=== PATIENT | male | born 1980 | race Caucasian/White ===

== ENCOUNTER 2021-03-31 12:29 | Outpatient (REF) | payer BC, SELFPAY ==
[2021-03-31 13:53] LABS: MANUAL DIFF FLAG NO
[2021-03-31 13:54] LABS: Basophils Percent Auto 0.2 % (0-2); Eosinophils Absolute Auto 0.1 X10*3/uL (0.0-0.4); Eosinophils Percent Auto 1.7 % (0-4); Hematocrit 44.6 % (42-52); Hemoglobin 15.2 g/dl (14.0-18.0); Imm Gran Abs Auto 0.01 X10*3/uL (0.00-0.03); Imm Gran Pct Auto 0.2 % (0.0-0.4); Lymphocytes Absolute Auto 1.8 X10*3/uL (1.2-4.9); Mean Corpuscular HGB Conc 34.1 g/dl (31.0-36.0); Mean Corpuscular Hemoglobin 30.2 pg (27.0-33.0); Mean Corpuscular Volume 88.5 fL (80-98); Mean Platelet Volume 10.8 fL (9.4-12.4); Monocytes Absolute Auto 0.4 X10*3/uL (0.1-1.2); Monocytes Percent Auto 7.3 % (2-11); Neutrophils Absolute Auto 2.5 X10*3/uL (2.0-8.3); Neutrophils Percent Auto 52.6 % (45-73); Platelet Count 202 X10*3/uL (160-400); Red Blood Count 5.04 X10*6/uL (4.60-5.80); White Blood Count 4.8 X10*3/uL (4.8-10.8)
[2021-03-31 16:20] LABS: Alanine Aminotransferase 46 U/L (0-40); Albumin Level 4.7 g/dL (3.5-5.0); Alkaline Phosphatase 118 U/L (39-117); Anion Gap 13 (12-20); Aspartate Amino Transferase 27 U/L (5-37); Bilirubin Total 0.8 mg/dL (0.0-1.0); Blood Urea Nitrogen 14 mg/dL (9-16); Calcium 9.5 mg/dL (8.4-10.2); Carbon Dioxide 27 mmol/L (22-29); Chloride 104 mmol/L (96-108); Cholesterol 242 mg/dL; Estimated Glomerular Filt Rate > 60; Glucose Fasting 100 mg/dL (60-99); HDL Cholesterol 35 mg/dL; LDL Cholesterol Calculated 180 mg/dl; Potassium 4.2 mmol/L (3.3-5.1); Sodium 140 mmol/L (135-145); Total Protein 7.3 g/dL (6.5-8.0); Triglycerides 139 mg/dL
== END 2021-03-31 12:30 | disposition home or self-care (01) ==
LOC: HO.HMGCLDS 12:29
PROVIDERS: PCP Nurse Practitioner Family; Visit Provider Hospitalist
DX: R73.9 Hyperglycemia, unspecified (principal)
CPT/HCPCS: 36415; 80053; 80061; 85025

== ENCOUNTER 2024-01-19 13:12 | Outpatient (REF) | payer OTHER, SELFPAY ==
[2024-01-19 16:24] LABS: MANUAL DIFF FLAG NO
[2024-01-19 16:28] LABS: Basophils Percent Auto 0.4 % (0-2); Eosinophils Absolute Auto 0.1 X10*3/uL (0.0-0.4); Eosinophils Percent Auto 1.4 % (0-4); Hematocrit 42.1 % (42.0-52.0); Hemoglobin 14.6 g/dl (14.0-18.0); Imm Gran Abs Auto 0.01 X10*3/uL (0.00-0.03); Imm Gran Pct Auto 0.2 % (0.0-0.4); Lymphocytes Absolute Auto 1.6 X10*3/uL (1.2-4.9); Lymphocytes Percent Auto 30.4 % (20-40); Mean Corpuscular HGB Conc 34.7 g/dl (31.0-36.0); Mean Corpuscular Hemoglobin 30.6 pg (27.0-33.0); Mean Corpuscular Volume 88.3 fL (80.0-98.0); Mean Platelet Volume 10.6 fL (9.4-12.4); Monocytes Absolute Auto 0.4 X10*3/uL (0.1-1.2); Monocytes Percent Auto 6.8 % (2-11); Neutrophils Absolute Auto 3.1 x10*3/uL (2.0-8.3); Neutrophils Percent Auto 60.8 % (45-73); Platelet Count 205 X10*3/uL (160-400); Red Blood Count 4.77 X10*6/uL (4.60-5.80); Red Cell Distribution Width 11.9 % (11.0-16.0); White Blood Count 5.1 X10*3/uL (4.8-10.8)
[2024-01-19 16:48] LABS: Alanine Aminotransferase 46 U/L (0-40); Albumin Level 4.3 g/dL (3.5-5.0); Alkaline Phosphatase 146 U/L (39-117); Anion Gap 14 (12-20); Aspartate Amino Transferase 18 U/L (5-37); Bilirubin Direct 0.1 mg/dL (0.0-0.5); Bilirubin Total 0.3 mg/dL (0.0-1.0); Blood Urea Nitrogen 15 mg/dL (9-16); Calcium 9.7 mg/dL (8.4-10.2); Carbon Dioxide 26 mmol/L (22-29); Chloride 103 mmol/L (96-108); Estimated Glomerular Filt Rate > 60; Glucose Random 287 mg/dL (60-115); Potassium 3.8 mmol/L (3.3-5.1); Sodium 139 mmol/L (135-145); Total Protein 6.9 g/dL (6.5-8.0)
== END 2024-01-19 13:13 | disposition home or self-care (01) ==
LOC: WCCF 13:12
PROVIDERS: PCP Nurse Practitioner Family; Visit Provider Physician Assistant Medical
DX: Z77.098 Contact with and (suspected) exposure to other hazardous, chiefly nonmedicinal, chemicals (principal); Z57.8 Occupational exposure to other risk factors; T49.3X1A Poisoning by emollients, demulcents and protectants, accidental (unintentional), initial encounter; Y92.69 Other specified industrial and construction area as the place of occurrence of the external cause
CPT/HCPCS: 36415; 80053; 82248; 85025; 99203

== ENCOUNTER 2024-01-31 08:38 | Outpatient (AMB) | payer BC, SELFPAY ==
[2024-01-31 08:43] VITALS: BP 122/80; PULSE 73; O2SAT 96; BMI 42.0
--- NOTE | 2024-01-31 08:43 | MHC.PC.OV ---
Vital Signs 01/31/24 08:43 Height 5 ft 7 in Weight 268 lb BMI 42.0 BP 122/80 Blood Pressure Location Rt brachial Position Sitting Pulse 73 Pulse Source Pulse Oximeter Pulse Oximetry (%) 96 Oxygen Delivery Method Room Air Intake Visit Reasons: follwo up, newly diagnosis with DM Intake Note: pt is here for follow up regarding newly diagnosed being DM Ticket Sorter Required: No Allergies No Known Allergies Allergy (Verified 01/31/24 08:44) Medication List - Last Reconciled 01/31/24 by FRANCISCO JAVIER Boyer atorvastatin 10 mg PO BEDTIME 90 days lisinopril 2.5 mg PO DAILY metformin ER 500 mg PO BID 30 days Tobacco use date assessed: 01/31/24 Dental Screening Dental Screen Date: 01/31/24 Did you have a dental visit in the last 12 months?: Yes Did you have a dental problem in the last 6 months where you did not have access to dental care?: No Was dental information given to patient?: Patient has dentist HPI follwo up, newly diagnosis with DM HPI Details Pt is a newly diagnosed diabetic. A1C in office today is 8.6. Due for microalbumin, will order. Denies polyuria, polydipsia, and neuropathy. Pt denies any signs and symptoms of hypoglycemia and does know how to correct it. Will refer to nurse navigator for diabetes education. Educated pt on proper diet and bad carbs. Due for eye exam, will refer. Will start metformin ER 500mg bid (starting once a day x 1 week). Will also start atorvastatin 10mg and lisinopril 2.5mg. Refuses pneumonia vaccine. Will have him take his sugars fasting in the am, then one other time (randomly) throughout the day. He will drop off values. [facility] Surgical History No pertinent past surgical history Family History Mother Diabetes Father No problems noted. 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 1. Little interest or pleasure in doing things: not at all 2. Feeling down, depressed, or hopeless: not at all 3. Trouble falling or staying asleep, or sleeping too much: not at all 4. Feeling tired or having little energy: several days 5. Poor appetite or overeating: several days 6. Feeling bad about yourself - or that you are a failure or have let yourself or your family down: not at all 7. Trouble concentrating on things, such as reading the newspaper or watching television: not at all 8. Moving or speaking so slowly that other people could have noticed. Or the opposite - being so fidgety or restless that you have been moving around a lot more than usual: not at all 9. Thoughts that you would be better off or of hurting yourself in some way: not at all Total score: 2 Depression Screening Interpretation: Negative Depression Screening Done: Yes 85771 - PHQ-9 Billing: Yes Source: Developed by Drs. Nito Wray, Tracy Centeno, Hermann Arrington and colleagues, with an educational pee from [employer]. Thrive Questionnaire Date Thrive assessed: 01/31/24 I am a: Patient What is your living situation today?: I have a steady place to live Within the past 12 months, did the food you bought not last and you didn't have the money to get more?: Never true Within the past 12 months, did you worry whether your food would run out before you got money to buy more?: Never true Do you have trouble paying for medicines?: No Do you have trouble getting transportation to medical appointments?: No Do you have trouble paying your heating and electricity bill?: No Do you have trouble taking care of your child, family member or friend?: No Do you have trouble with day-to-day activities such as bathing, preparing meals, shopping, managing finances, etc.?: No Are you currently unemployed and looking for a job?: No Are you interested in more education?: No Please select the resources that you would like help with: Housing/Intermediate Currently or been in a relationship where the following occur: No concerns reported THRIVE Score: 0 AUDIT C Alcohol Use Questionnaire (AUDIT-C) 1. How often do you have a drink containing alcohol?: 2-4 times a month 2. How many drinks containing alcohol do you have on a typical day when you are drinking?: 5 or 6 3. How often do you have six or more drinks on one occasion?: Monthly Total Score: 6 Score Reviewed/Action Taken: Yes MATT-7 AMB Questionnaire MATT-7 Date MATT - 7 assessed: 01/31/24 Feeling nervous, anxious, or on edge: 0 = Not at all Not being able to stop or control worryin = Not at all Worrying too much about different things: 0 = Not at all Trouble relaxin = Several days Being so restless that it is hard to sit still: 0 = Not at all Becoming easily annoyed or irritable: 0 = Not at all Feeling afraid as if something awful might happen: 0 = Not at all Total MATT-7 score (0-4 normal; 5-9 mild; 10-14 moderate; 15-21 severe): 1 Source: Developed by Drs. Nito Wray, Tracy Centeno, Hermann Arrington and colleagues, with an educational pee from [employer]. MATT-7 Assessment Billing MATT-7 Assessment Tool: MATT-7 Assessment 54458 Review of Systems Const Reports as per HPI Physical exam (Primary Care) Vital Signs: Last Vital Signs Pulse 73 01/31/24 08:43 BP 122/80 01/31/24 08:43 Pulse Ox 96 01/31/24 08:43 Oxygen Delivery Method Room Air 01/31/24 08:43 BMI result Body Mass Index 42.0 Tobacco/Smoking Status: Tobacco use Status Tobacco use date assessed 01/31/24 01/31/24 08:49 Patient Tobacco Use Status Never used Tobacco 01/31/24 08:49 e-Cigarette/Vaping Use Never Used 01/31/24 08:49 PHQ-9: PHQ-9 Score PHQ-9: Total score 2 01/31/24 08:51 Depression Screening Interpretation: Negative Thrive Assessment: Date of Thrive Assessment Date Thrive assessed 01/31/24 01/31/24 08:49 Currently or been in a relationship where the following occur: No concerns reported Const General: cooperative Nutritional Appearance: obese morbidly obese Orientation/consciousness: patient oriented x3 Resp Effort & Inspection: normal respiratory effort Auscultation: clear to auscultation bilaterally Cardio Rate: regular rate Rhythm: regular rhythm Heart sounds: S1 normal heart sound present and S2 normal heart sound present Neuro General: patient oriented x3 Extrem Other: bilat feet: + sensation with use of monofilament, feet intact Psych Appearance: grossly normal Mental Status: mental status grossly normal Speech and movement: Normal speech and movement present Affect: normal affect Attitude: cooperative Thought process: Normal thought process present Thought content: Normal thought content present Insight: Good insight present (Psych) Judgement: Good judgement present (Psych) Results AMB Hemoglobin A1c AMB Hemoglobin A1c 8.6 % Last Edit by Humberto Kemp CMA on 01/31/24 09:00 Assessment and Plan Assessment & Plan (1) Newly diagnosed diabetes: Code(s): E11.9 - Type 2 diabetes mellitus without complications Plan: Microalbumin ordered, referred to nurse navigator, referred for eye exam, starting metformin, statin, and ARNOLDO Plan The patient agreed to the use of a medical records supervisor for this encounter. Scribed for FRANCISCO JAVIER Nguyen by Mildred Chambers medical records supervisor, on 01/31/2024 at 08:55 EST. Orders: Orders Microalbumin, Random (w Creat) Today E11.9 - Type 2 diabetes mellitus without complications AMB Hemoglobin A1c Today Z13.9 - Encounter for screening, unspecified Referrals Nurse Navigator Referral E11.9 - Type 2 diabetes mellitus without complications Ophthalmology Referral E11.9 - Type 2 diabetes mellitus without complications Medications: New atorvastatin 10 mg PO BEDTIME 90 days 90 tabs 0RF metformin ER 500 mg PO BID 30 days 60 tabs 3RF lisinopril 2.5 mg PO DAILY 90 tabs 0RF Coding Level of Care Code Est Pt Level 3 (18789) Diagnoses Newly diagnosed diabetes E11.9 Additional Codes MATT-7 Assessment Billing - MATT-7 Assessment Tool: MATT-7 Assessment 93755 ([id number])
== END 2024-01-31 11:33 | disposition home or self-care (01) ==
PROVIDERS: PCP Nurse Practitioner Family; Visit Provider Nurse Practitioner Family
DX: E11.9 Type 2 diabetes mellitus without complications (principal)
CPT/HCPCS: 83036; 99213

== ENCOUNTER 2024-01-31 09:17 | Outpatient (REF) | payer BC, SELFPAY ==
[2024-01-31 10:31] LABS: Creatinine Urine 153.31 mg/dL
== END 2024-01-31 09:18 | disposition home or self-care (01) ==
LOC: HO.HMGCLDS 09:17
PROVIDERS: PCP Nurse Practitioner Family; Visit Provider Nurse Practitioner Family
DX: E11.9 Type 2 diabetes mellitus without complications (principal)
CPT/HCPCS: 82043; 82570

== ENCOUNTER 2024-04-07 08:17 | Outpatient (AMB) | payer BC, SELFPAY ==
[2024-04-07 08:25] VITALS: BP 124/84; PULSE 97; O2SAT 96; BMI 40.4
--- NOTE | 2024-04-07 08:25 | MHC.OFFWIV ---
Intake Vital Signs 04/07/24 08:25 Height 5 ft 7 in Weight 258 lb 4 oz BMI 40.4 BP 124/84 Blood Pressure Location Lt brachial Position Sitting Pulse 97 Pulse Source Pulse Oximeter Pulse Oximetry (%) 96 Oxygen Delivery Method Room Air Intake Visit Reasons: EP Bit by dog, right hand Patient Tobacco Use Status: Never used Tobacco Allergies No Known Allergies Allergy (Verified 04/07/24 08:25) Medication List - Last Reconciled 04/07/24 by Ernesto Guidry MD atorvastatin 10 mg PO BEDTIME 90 days lisinopril 2.5 mg PO DAILY metformin ER 500 mg PO BID 30 days Do you need a note to return to daycare/school/sports/work: Yes HPI EP Bit by dog, right hand HPI Details Patient is a 43-year-old gentleman came in today to be evaluated for dog bite right hand Which happened last night as he was trying to separate his 2 dogs who were fighting Got bit by a smaller dog who is about 35 lb Both of his dogs are up-to-date on immunizations he tells me Patient had a tetanus vaccine December of this year Patient is right-handed Bite is around his thumb base There are 2 puncture wounds when is palmar aspect and other 1 is dorsal aspect close to his joint He is able to move thumb and his neurovascular is intact there is no active bleeding Swelling is there Wound was cleaned and new bandage was applied I have sent Augmentin for the patient that he is to start today Note given to be off work until seen again next week Patient was instructed to keep his hand elevated, if there is increase in swelling or any discharge patient is to let us know right away COUNT INCLUDES [facility] Surgical History No pertinent past surgical history Family History Mother Diabetes Father No problems noted. 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 Current occupational exposures/hazards: Yes Cognitive needs: No Hearing needs: No Vision needs: No Review of Systems Const All systems reviewed & are unremarkable except as noted in HPI and below Physical Exam Vital Signs: Last Vital Signs Pulse 97 04/07/24 08:25 BP 124/84 04/07/24 08:25 Pulse Ox 96 04/07/24 08:25 Oxygen Delivery Method Room Air 04/07/24 08:25 BMI result Body Mass Index 40.4 Const General: no acute distress Orientation/consciousness: patient oriented x3 Eyes General: appearance normal, both eyes and all related structures Resp Effort & Inspection: normal respiratory effort and able to speak in complete sentences Neuro General: patient oriented x3 Extrem Hand/finger images: 1. Puncture wound no active bleeding 2. Another puncture wound no active bleeding, swelling is present, patient is able to move his thumb, neurovascular intact Psych Mental Status: mental status grossly normal Assessment & Plan Assessment & Plan (1) Dog bite of right hand: Code(s): S61.451A - Open bite of right hand, initial encounter; W54.0XXA - Bitten by dog, initial encounter Qualifiers: Encounter type: initial encounter Qualified Code(s): S61.451A - Open bite of right hand, initial encounter; W54.0XXA - Bitten by dog, initial encounter Plan Patient is a 43-year-old gentleman came in today to be evaluated for dog bite right hand Which happened last night as he was trying to separate his 2 dogs who were fighting Got bit by a smaller dog who is about 35 lb Both of his dogs are up-to-date on immunizations he tells me Patient had a tetanus vaccine December of this year Patient is right-handed Bite is around his thumb base There are 2 puncture wounds when is palmar aspect and other 1 is dorsal aspect close to his joint He is able to move thumb and his neurovascular is intact there is no active bleeding Swelling is there Wound was cleaned and new bandage was applied I have sent Augmentin for the patient that he is to start today Note given to be off work until seen again next week Patient was instructed to keep his hand elevated, if there is increase in swelling or any discharge patient is to let us know right away Medications: New amoxicillin-pot clavulanate 500-125 mg (Augmentin) 1 tab PO TID 10 days 30 tabs 0RF Coding Level of Care Code Est Pt Level 4 (63474) Diagnoses Dog bite of right hand, initial encounter S61.451A; W54.0XXA Encounter type: initial encounter
== END 2024-04-07 08:49 | disposition home or self-care (01) ==
PROVIDERS: PCP Nurse Practitioner Family; Visit Provider Internal Medicine
DX: S61.451A Open bite of right hand, initial encounter (principal); W54.0XXA Bitten by dog, initial encounter

== ENCOUNTER → 2024-04-07 08:17 | Outpatient (BNVA) | payer BC, SELFPAY | PROVIDERS: PCP Nurse Practitioner Family; Visit Provider Internal Medicine ==

== ENCOUNTER 2024-04-11 14:53 | Outpatient (AMB) | payer BC, SELFPAY ==
[2024-04-11 14:59] VITALS: BP 132/86; PULSE 103; O2SAT 98; BMI 40.1
--- NOTE | 2024-04-11 14:59 | A.OFFPC_ITS ---
Vital Signs 3 04/11/24 14:59 Height 5 ft 7 in Weight 256 lb 6 oz BMI 40.1 BP 132/86 Blood Pressure Location Lt brachial Position Sitting Pulse 103 H Pulse Source Pulse Oximeter Pulse Oximetry (%) 98 Oxygen Delivery Method Room Air Intake Visit Reasons: Follow up on dog bite Allergies No Known Allergies Allergy (Verified 04/11/24 15:02) Medication List - Last Reconciled 04/11/24 by Ernesto Guidry MD amoxicillin-pot clavulanate 500-125 mg (Augmentin) 1 tab PO TID 10 days atorvastatin 10 mg PO BEDTIME 90 days lisinopril 2.5 mg PO DAILY metformin ER 500 mg PO BID 30 days Tobacco use date assessed: 04/11/24 Dental Screening Dental Screen Date: 04/11/24 Did you have a dental visit in the last 12 months?: Yes Did you have a dental problem in the last 6 months where you did not have access to dental care?: No Was dental information given to patient?: Patient has dentist HPI Follow up on dog bite 2 HPI0 Details Patient is a 43-year-old gentleman came in today to be re-evaluated after dog bite right hand He had 2 puncture wounds He was seen 18th of this month Patient was started on Augmentin that he is still taking total of 10 days His wound looks much better swelling has gone down however it is still healing He can move his thumb but it is sore Patient is to finish his antibiotic and return for follow-up in 2 weeks Meanwhile I have given him letter to be off work until April 25 If there is any increase in swelling or discharge or pain Patient is to let me know. He works with [employer] and is right-handed [facility] Surgical History No pertinent past surgical history Family History Mother Diabetes Father No problems noted. 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 1. Little interest or pleasure in doing things: not at all 2. Feeling down, depressed, or hopeless: not at all 3. Trouble falling or staying asleep, or sleeping too much: not at all 4. Feeling tired or having little energy: not at all 5. Poor appetite or overeating: not at all 6. Feeling bad about yourself - or that you are a failure or have let yourself or your family down: not at all 7. Trouble concentrating on things, such as reading the newspaper or watching television: not at all 8. Moving or speaking so slowly that other people could have noticed. Or the opposite - being so fidgety or restless that you have been moving around a lot more than usual: not at all 9. Thoughts that you would be better off or of hurting yourself in some way: not at all Total score: 0 Depression Screening Interpretation: Negative Depression Screening Done: Yes 94964 - PHQ-9 Billing: Yes Source: Developed by Drs. Nito Wray, Tracy Centeno, Hermann Arrington and colleagues, with an educational pee from [email or web address]. Thrive Questionnaire Date Thrive assessed: 04/11/24 I am a: Patient What is your living situation today?: I have a steady place to live Within the past 12 months, did the food you bought not last and you didn't have the money to get more?: Never true Within the past 12 months, did you worry whether your food would run out before you got money to buy more?: Never true Do you have trouble paying for medicines?: No Do you have trouble getting transportation to medical appointments?: No Do you have trouble paying your heating and electricity bill?: No Do you have trouble taking care of your child, family member or friend?: No Do you have trouble with day-to-day activities such as bathing, preparing meals, shopping, managing finances, etc.?: No Are you currently unemployed and looking for a job?: No Are you interested in more education?: No Please select the resources that you would like help with: None Currently or been in a relationship where the following occur: No concerns reported THRIVE Score: 0 AUDIT C Alcohol Use Questionnaire (AUDIT-C) 1. How often do you have a drink containing alcohol?: 2-4 times a month 2. How many drinks containing alcohol do you have on a typical day when you are drinking?: 5 or 6 3. How often do you have six or more drinks on one occasion?: Monthly Total Score: 6 Score Reviewed/Action Taken: Yes MATT-7 AMB Questionnaire MATT-7 Date MATT - 7 assessed: 01/31/24 Source: Developed by Drs. Nito Wray, Tracy Centeno, Hermann Arrington and colleagues, with an educational pee from [email or web address]. Review of Systems Const All systems reviewed & are unremarkable except as noted in HPI and below Physical exam (Primary Care) Vital Signs: Last Vital Signs Pulse 103 H 04/11/24 14:59 BP 132/86 04/11/24 14:59 Pulse Ox 98 04/11/24 14:59 Oxygen Delivery Method Room Air 04/11/24 14:59 BMI result Body Mass Index 40.1 Tobacco/Smoking Status: Tobacco use Status Tobacco use date assessed 04/11/24 04/11/24 15:03 Patient Tobacco Use Status Never used Tobacco 04/11/24 15:01 e-Cigarette/Vaping Use Never Used 04/11/24 15:01 PHQ-9: PHQ-9 Score PHQ-9: Total score 0 04/11/24 15:03 Depression Screening Interpretation: Negative Thrive Assessment: Date of Thrive Assessment Date Thrive assessed 04/11/24 04/11/24 15:03 Currently or been in a relationship where the following occur: No concerns reported Const General: no acute distress Orientation/consciousness: patient oriented x3 Eyes General: appearance normal, both eyes and all related structures Resp Effort & Inspection: normal respiratory effort and able to speak in complete sentences Neuro General: patient oriented x3 Extrem Hand/finger images: 2 1. Swelling is much better wound is healing no discharge able to move thumb with soreness 2. Neurovascular intact, puncture wound healing well Psych Mental Status: mental status grossly normal Coding Level of Care Code Est Pt Level 3 (49002) Diagnoses Dog bite of right hand, initial encounter S61.451A; W54.0XXA Encounter type: initial encounter Puncture wound of right hand without foreign body, subsequent encounter S61.431D Encounter type: subsequent encounter Foreign body presence: without foreign body Assessment & Plan Assessment & Plan (1) Dog bite of right hand: Code(s): S61.451A - Open bite of right hand, initial encounter; W54.0XXA - Bitten by dog, initial encounter Category: Medical Qualifiers: Encounter type: initial encounter Qualified Code(s): S61.451A - Open bite of right hand, initial encounter; W54.0XXA - Bitten by dog, initial encounter (2) Puncture wound of right hand: Code(s): S61.431A - Puncture wound without foreign body of right hand, initial encounter Category: Medical Qualifiers: Encounter type: subsequent encounter Foreign body presence: without foreign body Qualified Code(s): S61.431D - Puncture wound without foreign body of right hand, subsequent encounter Plan Patient is a 43-year-old gentleman came in today to be re-evaluated after dog bite right hand He had 2 puncture wounds He was seen 18th of this month Patient was started on Augmentin that he is still taking total of 10 days His wound looks much better swelling has gone down however it is still healing He can move his thumb but it is sore Patient is to finish his antibiotic and return for follow-up in 2 weeks Meanwhile I have given him letter to be off work until April 25 If there is any increase in swelling or discharge or pain Patient is to let me know. 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
== END 2024-04-11 15:24 | disposition home or self-care (01) ==
PROVIDERS: PCP Nurse Practitioner Family; Visit Provider Internal Medicine
DX: S61.451D Open bite of right hand, subsequent encounter (principal); W54.0XXA Bitten by dog, initial encounter; S61.431D Puncture wound without foreign body of right hand, subsequent encounter

== ENCOUNTER → 2024-04-11 14:53 | Outpatient (BNVA) | payer BC, SELFPAY | PROVIDERS: PCP Nurse Practitioner Family; Visit Provider Internal Medicine ==

== ENCOUNTER 2024-04-25 09:00 | Outpatient (AMB) | payer BC, SELFPAY ==
[2024-04-25 09:14] VITALS: BP 130/82; PULSE 76; O2SAT 100; BMI 40.6
--- NOTE | 2024-04-25 09:14 | MHC.PC.OV ---
Vital Signs 04/25/24 09:14 Height 5 ft 7 in Weight 259 lb 6 oz BMI 40.6 BP 130/82 Blood Pressure Location Lt brachial Position Sitting Pulse 76 Pulse Source Pulse Oximeter Pulse Oximetry (%) 100 Oxygen Delivery Method Room Air Intake Visit Reasons: Follow up dog bite/jesse ok'd Allergies No Known Allergies Allergy (Verified 04/11/24 15:02) Medication List - Last Reconciled 04/25/24 by Ernesto Guidry MD atorvastatin 10 mg PO BEDTIME 90 days lisinopril 2.5 mg PO DAILY metformin ER 500 mg PO BID 30 days Tobacco use date assessed: 04/11/24 Dental Screening Dental Screen Date: 04/11/24 HPI Follow up dog bite/jesse ok'd HPI Details Patient is a 43-year-old gentleman came in today to be evaluated for dog bite right proximal joint of thumb Wound has healed well, but extension thumb still causes pain He will go back to work I have ordered occupational therapy for the patient to strengthen the joint and ligaments around PFSH Surgical History No pertinent past surgical history Family History Mother Diabetes Father No problems noted. 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 Current occupational exposures/hazards: Yes Cognitive needs: No Hearing needs: No Vision needs: No Questionnaire Thrive Questionnaire Date Thrive assessed: 01/31/24 I am a: Patient What is your living situation today?: I have a steady place to live Within the past 12 months, did the food you bought not last and you didn't have the money to get more?: Never true Within the past 12 months, did you worry whether your food would run out before you got money to buy more?: Never true Do you have trouble paying for medicines?: No Do you have trouble getting transportation to medical appointments?: No Do you have trouble paying your heating and electricity bill?: No Do you have trouble taking care of your child, family member or friend?: No Do you have trouble with day-to-day activities such as bathing, preparing meals, shopping, managing finances, etc.?: No Are you currently unemployed and looking for a job?: No Are you interested in more education?: No Please select the resources that you would like help with: None Currently or been in a relationship where the following occur: No concerns reported THRIVE Score: 0 MATT-7 AMB Questionnaire MATT-7 Date MATT - 7 assessed: 01/31/24 Source: Developed by Drs. Nito Wray, Tracy Centeno, Hermann Arrington and colleagues, with an educational pee from [employer]. Review of Systems Const All systems reviewed & are unremarkable except as noted in HPI and below Physical exam (Primary Care) Vital Signs: Last Vital Signs Pulse 76 04/25/24 09:14 BP 130/82 04/25/24 09:14 Pulse Ox 100 04/25/24 09:14 Oxygen Delivery Method Room Air 04/25/24 09:14 BMI result Body Mass Index 40.6 Tobacco/Smoking Status: Tobacco use Status Tobacco use date assessed 04/11/24 04/25/24 09:17 Patient Tobacco Use Status Never used Tobacco 04/25/24 09:17 e-Cigarette/Vaping Use Never Used 04/25/24 09:17 Thrive Assessment: Date of Thrive Assessment Date Thrive assessed 01/31/24 04/25/24 09:17 Currently or been in a relationship where the following occur: No concerns reported Const General: no acute distress Orientation/consciousness: patient oriented x3 Eyes General: appearance normal, both eyes and all related structures Resp Effort & Inspection: normal respiratory effort and able to speak in complete sentences Neuro General: patient oriented x3 Extrem Hand/finger images: 1. Wound has healed well, range of motion is intact, neurovascular intact, active extension causes pain over the tendon Psych Mental Status: mental status grossly normal Coding Level of Care Code Est Pt Level 3 (59487) Diagnoses Pain in thumb joint with movement of right hand M25.541 Assessment & Plan Assessment & Plan (1) Pain in thumb joint with movement of right hand: Code(s): M25.541 - Pain in joints of right hand Category: Medical Plan Patient is a 43-year-old gentleman came in today to be evaluated for dog bite right proximal joint of thumb Wound has healed well, but extension thumb still causes pain He will go back to work I have ordered occupational therapy for the patient to strengthen the joint and ligaments around Orders: Orders OT Evaluation and Treatment Today M25.541 - Pain in joints of right hand
== END 2024-04-25 10:24 | disposition home or self-care (01) ==
LOC: HO.HMCC 09:00
PROVIDERS: PCP Nurse Practitioner Family; Visit Provider Internal Medicine
DX: M25.541 Pain in joints of right hand (principal)

== ENCOUNTER → 2024-04-25 09:00 | Outpatient (BNVA) | payer BC, SELFPAY | PROVIDERS: PCP Nurse Practitioner Family; Visit Provider Internal Medicine ==